=== PATIENT | female | born 2000 | race Hispanic/Latino ===

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

== ENCOUNTER 2020-04-28 18:27 | Emergency (ER) | payer MEDICAID, OTHER | END 2020-04-28 19:46 | disposition short-term general hospital (02) | LOC: MADERS 18:27 | DX: O26.892 Other specified pregnancy related conditions, second trimester (principal); R10.11 Right upper quadrant pain ==